=== PATIENT | female | born 1960 | race Caucasian/White ===

== ENCOUNTER 2024-10-06 16:43 | Emergency (ER) | payer OTHER, SELFPAY ==
[2024-10-06 16:45] VITALS: BP 160/108
--- NOTE | 2024-10-06 18:34 | ED.GENMED ---
History of Present Illness
General
Chief Complaint: Musculo-Skeletal Complaint
Source: patient
Time Seen by Provider: 10/06/24 17:20
Nursing documentation reviewed up to this point in time: agreed with
History of Present Illness
History of Present Illness:
Patient is a 63-year-old female who twisted her knee 9 days ago and started persistent pain along the medial aspect. She is able to bear weight. She reports she initially twisted this in June then reinjured it 9 days ago. She is able to bear
weight. She has been taking Tylenol for pain. She is allergic to aspirin and is unable to take ibuprofen.
Review of Systems
Review of Systems
Allergies reviewed?: Yes
All Other Systems: ROS reviewed and negative except as documented in HPI and ROS
Constitutional: Reports no symptoms
Musculoskeletal: Reports other (Left knee pain)
Skin: Reports no symptoms
Neurological: Reports no symptoms
Psychiatric: Reports no symptoms
Phy Exam
General Physical Exam
General Presentation: no apparent distress
General age: appears stated age
General Skin: warm and dry
General Habitus: normal
General Mental: alert
General Hydration: appears well hydrated
Neurological Exam
Neurological Exam: alert and oriented x3
Musculoskeletal Exam
Musculoskeletal Exam: other (Left lower extremities normal pulses no obvious effusion tender along the medial aspect pain with full flexion extension and mild pain on medial stress)
Skin Exam
Skin Exam: normal color and warm/dry
Psychiatric Exam
Psychiatric Exam: normal mood/affect
Course
Orders/Labs/Results
Orders:
Orders
10/06/24 16:52
CR Knee - Left 4 Or More View* Urgent
Comment:
Reason For Exam: pain
Vital Signs
Initial and Last Documented VS:
Initial Vital Signs
Temp Pulse Resp BP Pulse Ox
98.3 F 103 16 160/108 97
10/06/24 16:45 10/06/24 16:45 02/11/25 16:45 10/06/24 16:45 10/06/24 16:45
Last Documented Vital Signs
Temp Pulse Resp BP Pulse Ox
98.3 F 103 16 160/108 97
10/06/24 16:45 10/06/24 16:45 10/06/24 16:45 10/06/24 16:45 10/06/24 16:45
MDM/Problems Addressed
Differential Diagnosis Includes:
Not limited to sprain strain ligament injury meniscus injury
MDM/Problems Addressed:
Symptoms are consistent with knee sprain strain versus possible meniscus injury. Will DC with immobilizer ice Tylenol and Ortho
*Radiology
Radiology exam reviewed: radiology read reviewed
*Critical Care Note
Total Time (30-74mins, 75-104mins- exclusive of procedures): Not Applicable
ED Attending Note
-
Portions of this chart may have been created with voice recognition software.� Occasional wrong word or��sound alike� substitutions may have occurred due to the inherent limitations of voice recognition software.
Discharge Plan
Departure
Patient Disposition: Home (Routine Discharge)
Date of Disposition: 10/06/24
Time of Disposition: 18:35
Patient with high blood pressure during this ER visit?: Yes
Condition: Fair
Covid-19: Not Applicable
Discharge Problem:
Knee sprain
Instructions: Knee Sprain (DC)
Referrals:
Yakov Mcelroy MD [Family Provider] -
Nicola Garcia MD [Active] -
Activity Restrictions/Additional Instructions:
Continue to ice area as discussed and take Tylenol as needed. Keep elevated as much as possible. Call orthopedics for an appointment in the next of days return if any worsening of symptoms
Interventions
Interventions:
*Risk Screen - Suicide Last Done: 10/06/24 16:45
*General Assessment Last Done: 10/06/24 16:45
*Neglect/Abuse Screening Last Done: 10/06/24 16:45
*ED COVID-19 Vaccine History Last Done: 10/06/24 16:45
ED-Musculoskeletal Assessment Last Done: 10/06/24 17:03
Discharge Date and Time
Print Language: [id number]
[2024-10-06 18:38] VITALS: BP 159/99
== END 2024-10-06 19:21 | disposition home or self-care (01) ==
LOC: EMR 16:43
PROVIDERS: EMERGENCY PHYSICIAN Student in an Organized Health Care Education/Training Program; FAMILY PHYSICIAN Family Medicine
DX: S83.92XA Sprain of unspecified site of left knee, initial encounter (principal); X50.1XXA Overexertion from prolonged static or awkward postures, initial encounter
CPT/HCPCS: 99283; 73564